=== PATIENT | female | born 1940 | race Caucasian/White ===

== ENCOUNTER → 2017-01-30 | Outpatient (CLI) | payer OTHER ==
[~2017-01-30] MED LIST: AMOX500T3 PO; ASPI-435 PO; CHOL2000 PO; CLB200 PO; HYDR-5688 PO; HYG/25 PO; LISI-461 PO; METO100T44 PO; POTA10CA28 PO; ROSU5TAB PO
[2017-01-30 12:17] LABS: BASO % 0.6 %; BASO ABS # 0.03 K/uL (0-0.2); COMPLETE YES; EOS % 4.4 %; HEMATOCRIT 42.4 % (37-47); IG% 0.2 %; LYMPH % 38.1 %; MEAN CELL VOLUME 89.3 fL (80-100); MEAN CORPUSCULAR HGB CONC 31.4 g/dl (32-36); MEAN PLATELET VOLUME 10.4 fL (7.4-10.4); MONO % 9.3 %; NEUT % 47.4 %; PLATELET COUNT 256 K/uL (130-400); RED BLOOD COUNT 4.75 M/uL (4.2-5.4); WHITE BLOOD COUNT 5.25 K/uL (4.8-10.8)
[2017-01-30 12:54] LABS: ALT/SGPT 14 U/L (12-78); BLOOD UREA NITROGEN 19 mg/dl (7-18); BUN/CREATININE RATIO 26.3 (10-20); CARBON DIOXIDE 28 mmol/L (21-32); CHLORIDE 104 mmol/L (98-107); CHOLESTEROL 184 mg/dl (0-200); CREATININE 0.73 mg/dl (0.60-1.20); GLUCOSE 84 mg/dl (70-99); POTASSIUM 3.8 mmol/L (3.5-5.1); SODIUM 139 mmol/L (136-145)
[2017-01-30 13:05] LABS: ALB/GLOB RATIO 1.1 (0.9-2); ALKALINE PHOSPHATASE 57 U/L (45-117); AST/SGOT 16 U/L (15-37); CHOLESTEROL/HDL RATIO 3.3; HDL CHOLESTEROL 55 mg/dl; LDL CHOLESTEROL CALCULATED 110 mg/dl; TRIGLYCERIDES 97 mg/dl (0-150); VERY LOW DENSITY LIPOPROT CALC 19 mg/dl
[2017-01-30 13:08] LABS: CALCIUM 8.9 mg/dl (8.5-10.1)
== END | disposition home or self-care (01) ==
LOC: C.LABPBG 08:22
PROVIDERS: ATTEND Internal Medicine
DX: E78.5 Hyperlipidemia, unspecified (principal); I25.10 Atherosclerotic heart disease of native coronary artery without angina pectoris; E04.1 Nontoxic single thyroid nodule

== ENCOUNTER → 2018-04-25 | Outpatient (CLI) | payer OTHER ==
[2018-04-25 13:12] LABS: ALBUMIN 3.4 gm/dl (3.4-5.0); ALKALINE PHOSPHATASE 57 U/L (45-117); ALT/SGPT 14 U/L (12-78); AST/SGOT 14 U/L (15-37); BLOOD UREA NITROGEN 18 mg/dl (7-18); CALCIUM 8.9 mg/dl (8.5-10.1); CARBON DIOXIDE 30 mmol/L (21-32); CHOLESTEROL 132 mg/dl (0-200); CREATININE 0.75 mg/dl (0.60-1.20); GLUCOSE 83 mg/dl (70-99); LDL CHOLESTEROL CALCULATED 52 mg/dl; POTASSIUM 3.8 mmol/L (3.5-5.1); SODIUM 136 mmol/L (136-145); TOTAL PROTEIN 6.8 gm/dl (6.4-8.2)
== END | disposition home or self-care (01) ==
LOC: C.LABPBG 10:16
PROVIDERS: ATTEND Internal Medicine
DX: I10 Essential (primary) hypertension (principal); E78.5 Hyperlipidemia, unspecified; I49.3 Ventricular premature depolarization; I25.10 Atherosclerotic heart disease of native coronary artery without angina pectoris; I25.5 Ischemic cardiomyopathy; R53.82 Chronic fatigue, unspecified; M85.80 Other specified disorders of bone density and structure, unspecified site

== ENCOUNTER 2023-12-11 10:10 | Observation (INO) ==
[2023-12-11 10:43] LABS: Basophils # (auto) 0.03 K/uL (0.00-0.20); Basophils % (auto) 0.4 %; Eosinophils # (auto) 0.03 K/uL (0.00-0.50); Eosinophils % (auto) 0.4 %; Hematocrit (blood only) 36.8 % (37.0-47.0); Hemoglobin 12.3 g/dl (12.0-16.0); Immature Granulocytes # (auto) 0.02 K/uL (0.01-0.20); Immature Granulocytes % (auto) 0.3 %; Lymphocytes # (auto) 1.82 K/uL (1.20-3.40); Lymphocytes % (auto) 25.5 %; Mean Corpuscular Hemoglobin 28.6 pg (25.0-34.0); Mean Corpuscular Hgb Conc 33.4 g/dL (32.0-36.0); Mean Corpuscular Volume 85.6 fL (80.0-100.0); Mean Platelet Volume 9.5 fL (9.4-12.4); Monocytes # (auto) 0.58 K/uL (0.11-0.59); Monocytes % (auto) 8.1 %; Neutrophils # (auto) 4.65 K/uL (1.40-6.50); Neutrophils % (auto) 65.3 %; Platelet Count 240 K/uL (130-400); RDW Coefficient of Variation 13.2 % (11.5-14.5); RDW Standard Deviation 41.5 fL (36.4-46.3); White Blood Count 7.13 K/ul (4.8-10.8)
--- NOTE | 2023-12-11 10:50 | XRay Report ---
SINGLE VIEW CHEST CLINICAL HISTORY: Dizziness FINDINGS: An AP, portable, upright chest radiograph is compared to study dated 11/13/2023. The examina tion is degraded by portable technique and apical lordotic positioning. The patient is status post mi dline sternotomy. The heart is enlarged noting atherosclerotic calcification of the thoracic aorta. T he pulmonary vasculature is noncongested. Chronic interstitial thickening is similar previous. Scarri ng/atelectasis is noted at the lung bases. The lungs and pleural spaces are otherwise clear. No pneum othorax is seen. The skeletal structures are osteopenic. The bony thorax is grossly intact. Arthritic change is seen in the shoulders. IMPRESSION: Cardiomegaly with no active disease in the chest. ACT 112: Negative or not required by law. Electronically signed by: Tony Garcia M.D. 12/11/2023 10:48 AM
[2023-12-11 10:58] LABS: Albumin Globulin Ratio 1.4 (0.9-2); BUN Creatinine Ratio 25.8 (10-20); Bilirubin,Total 0.8 mg/dl (0.2-1.0); Calcium 9.3 mg/dl (8.6-10.3); Creatinine Clr Calc Pharmacy 64.4 ml/min; Est GFR (African American) 94.7 ml/min; Est GFR (Non-African American) 81.7 ml/min; Globulin 2.8 gm/dl (2.5-4.0); Magnesium 1.7 mg/dl (1.7-2.4); Potassium 3.4 mmol/L (3.5-5.1); Total Protein 6.8 gm/dl (6.0-8.3)
[2023-12-11 11:04] LABS: Troponin I High Sensitivity 9.2 pg/ml (0-14)
[2023-12-11 11:13] LABS: Thyroid Stimulating Hormone 1.286 uIu/ml (0.300-4.500)
--- NOTE | 2023-12-11 11:23 | Emergency Department Note ---
Impression & Plan Shakiness, Generalized weakness, Acute hypokalemia, Acute hyponatremia ED Provider Note HISTORY OF PRESENT ILLNESS: Patient is an 83-year-old female presenting with shakiness. Patient reports that she has felt very shaky at home. Reports is her bilateral upper extremities that feel very unsteady. She apparently disclosed that she was dizzy to EMS but denies any dizziness in the emergency department. Reports that her shakiness started yesterday. Denies any fevers at home. She called her home health nurse who recommended she present to the emergency department, when patient reports she wanted to be seen at clinic. Denies any chest pain or shortness of breath. Denies any fever. Denies any nausea or vomiting. She has chronic neck pain secondary to arthritis, and she reports she took Tylenol earlier today which improved her symptoms. Denies any abdominal pain, nausea or vomiting. Denies recent falls or head injury. ROS: as above PHYSICAL EXAM: Constitutional: Patient appears in no acute distress. HENT: Head: Normocephalic and atraumatic. Eyes: EOMI, PERRL Mouth/Throat: Mucous membranes moist. Neck: Trachea midline. Neck supple. Cardiovascular: RRR, No murmurs, rubs or gallops. Intact distal pulses. Pulmonary/Chest: No respiratory distress. Breath sounds clear and equal bilaterally. No wheezes or rales. Abdominal: Abdomen soft, no tenderness, rebound or guarding. Musculoskeletal: No edema, tenderness or deformity noted. Skin: Warm and dry. No rash, erythema, pallor or cyanosis Psychiatric: Appropriate mood and affect for situation. Neurological: Alert and keenly responsive. CN II-XII grossly intact, moving all extremities equally and fully. MDM: - Vitals signs showed hypertension - History obtained via patient. History as above. - Chronic conditions affecting care: mitral regurgitation; HLD; IBS; HTN - Differential diagnoses include, but are not limited to: ACS; dysrhythmia; electrolyte abnormality; UTI; pneumonia - Order placed for continuous cardiac monitoring. At this time, monitor showed rate of 66 bpm with normal sinus rhythm, per my interpretation. - External medical records reviewed. Primary care visit note dated 11/25/2023 was reviewed. Patient was following up in clinic for her recent hospital discharge. Discharge summary dated 11/14/2023 was reviewed. Patient was admitted at that time for an upper respiratory infection. - EKG interpreted by myself showed normal sinus rhythm. Rate 65 bpm. QT 450. No acute ischemic changes. Noted to have a left bundle branch block. - Laboratory workup interpreted by myself showed normal WBC; hyponatremia (Na 126); hypokalemia (K 3.2); normal troponin; normal lipase; normal TSH - Repeat troponin WNL - CXR negative for pneumonia, per my interpretation - Discussed results with patient. On reassessment, she is feeling very shaky still. Patient does live home alone and ambulates with a walker. She has been able to ambulate with her walker to the bathroom in the ER, but is having significant tremors and shakiness in her bilateral upper extremities. Discussed results with the patient and her daughter. They feel more comfortable with plan for admission for further assessment. Patient symptoms may be secondary to her hyponatremia, she has not been hyponatremic on previous lab draws. - Discussion was had with gearcase assembler about patient's case and need for admission - Hospitalist consulted for admission - Patient admitted to [facility] service for further evaluation and management. ASSESSMENT AND PLAN: Diagnosis: shakiness; acute hypokalemia; hyponatremia; generalized weakness Plan: admit Past Med/Surg History Medical History Kyphosis Chronic fatigue syndrome Left atrial enlargement Mitral regurgitation Solitary thyroid nodule Chronic lower back pain Arteriosclerosis of coronary artery Hyperlipidemia Unspecified essential hypertension Irritable bowel syndrome Senile osteoporosis Arthritis of left knee Surgical History History of tubal ligation History of tonsillectomy History of rotator cuff surgery History of parathyroidectomy History of dilation and curettage History of colonoscopy History of bilateral hip replacements History of bilateral knee replacement Status post aorto-coronary artery bypass graft Family History Father Myocardial infarction Denies family history of Ovarian cancer Prostate cancer Breast cancer Colorectal cancer Social History Smoking Status: Never smoker Second Hand Exposure: No; Do You Dip or Chew Tobacco: No; Hx Alcohol Use: No Hx Substance Use: No Preferred Language: Turkish Communication Ability: Effective Visual Impairment: No Limitations Hearing Ability: Normal Licensed Psychologist Manager Required: No Beliefs That Will Affect Care: None marital status: / Current Living Situation: Alone current occupational status: retired Feels Safe at Home: Yes Childhood Exposure to Second-Hand Smoke: Yes Diet: regular Diet Comment: regular caffeine: Yes during the past year weight has: remained stable Dental Care, Regularly: Yes Physical Activity Frequency: Daily Physical Activity Frequency Comment: LIMITED Seatbelt Use: always Sunscreen Use: Yes Assistive Devices: Cane, Glasses and Walker Allergies Allergies Allergy/AdvReac Type Severity Reaction Status Date / Time latex Allergy Severe RASH Verified 11/25/23 10:15 adhesive Allergy Intermediate RASH Verified 11/25/23 10:15 atorvastatin Allergy Intermediate ITCHING Verified 11/25/23 10:15 cetirizine Allergy Intermediate RASH Verified 11/25/23 10:15 Iodinated Contrast Media Allergy Intermediate ITCHING Verified 11/25/23 10:15 oxycodone Allergy Intermediate RASH Verified 11/25/23 10:15 Home Meds Home Medications Medication Instructions Recorded Confirmed acetaminophen 500 mg tablet 500 mg PO HS PRN Pain 04/16/19 12/11/23 (Tylenol Extra Strength) aspirin 81 mg tablet,delayed 81 mg PO DAILY 04/16/19 12/11/23 release (Adult Low Dose Aspirin) cholecalciferol (vitamin D3) 75 3,000 units PO DAILY 04/16/19 12/11/23 mcg (3,000 unit) tablet chlorthalidone 25 mg tablet 12.5 mg PO DAILY 11/13/23 12/11/23 Previous Rx's Medication Instructions Recorded metoprolol succinate 50 mg 50 mg PO DAILY #90 tabs 06/24/23 tablet,extended release 24 hr potassium chloride 10 mEq 10 meq PO QAM #90 caps 10/10/23 capsule,extended release rosuvastatin 5 mg tablet (Crestor) 5 mg PO DAILY #90 tabs 10/10/23 lisinopril 30 mg tablet 30 mg PO DAILY #90 tabs 10/28/23 Results & Data (ED) Vital Signs Vital Signs - 24 hr 12/11/23 10:27 12/11/23 10:31 12/11/23 10:37 Temperature 36.5 C Temperature Source Oral Pulse Rate 64 66 Pulse Rate from SpO2 Sensor 66 Pulse Rhythm Regular Pulse Strength Normal Respiratory Rate 18 17 Respiratory Effort / Characteristics Non-Labored Respiratory Depth Normal Respiratory Pattern Regular Blood Pressure 162/47 H 162/47 H Blood Pressure Mean 85 85 Blood Pressure Position Sitting Pulse Oximetry 98 100 98 Oxygen Delivery Method Room Air Room Air Room Air Sepsis Recent Fever Within 48 Hours No Sepsis New/Unexplained Change in Mental Status No Sepsis Action Taken by Nursing No Action Required Laboratory Data 12/11/23 10:18 12/11/23 10:18 Lab Results 12/11/23 12/11/23 Range/Units 10:18 12:42 WBC 7.13 (4.8-10.8) K/ul RBC 4.30 (4.20-5.40) M/uL Hgb 12.3 (12.0-16.0) g/dl Hct 36.8 L (37.0-47.0) % MCV 85.6 (80.0-100.0) fL MCH 28.6 (25.0-34.0) pg MCHC 33.4 (32.0-36.0) g/dL RDW Std Deviation 41.5 (36.4-46.3) fL RDW Coeff of Jan 13.2 (11.5-14.5) % Plt Count 240 (130-400) K/uL MPV 9.5 (9.4-12.4) fL Immature Gran % (Auto) 0.3 % Neut % (Auto) 65.3 % Lymph % (Auto) 25.5 % [place] % (Auto) 8.1 % Eos % (Auto) 0.4 % Baso % (Auto) 0.4 % Neut # (Auto) 4.65 (1.40-6.50) K/uL Lymph # (Auto) 1.82 (1.20-3.40) K/uL [place] # (Auto) 0.58 (0.11-0.59) K/uL Eos # (Auto) 0.03 (0.00-0.50) K/uL Baso # (Auto) 0.03 (0.00-0.20) K/uL Immature Gran # (Auto) 0.02 (0.01-0.20) K/uL PT 11.4 (9.0-12.0) Seconds INR 1.0 (0.9-1.1) Sodium 126 L (136-145) mmol/L Potassium 3.4 L (3.5-5.1) mmol/L Chloride 92 L (98-107) mmol/L Carbon Dioxide 27 (21-32) mmol/L Anion Gap 7 (3-11) BUN 17 (6-23) mg/dl Creatinine 0.66 (0.6-1.2) mg/dl Est Cr Clr Drug Dosing 64.4 ml/min Est GFR ( Amer) 94.7 ml/min Est GFR (Non-Af Amer) 81.7 ml/min BUN/Creatinine Ratio 25.8 H (10-20) Glucose 98 (70-99(Fasting)) mg/dl Calcium 9.3 (8.6-10.3) mg/dl Magnesium 1.7 (1.7-2.4) mg/dl Total Bilirubin 0.8 (0.2-1.0) mg/dl AST 14 (13-39) U/L ALT 8 (7-52) U/L Alkaline Phosphatase 47 (34-104) U/L Troponin I High Sens 9.2 10.8 (0-14) pg/ml Total Protein 6.8 (6.0-8.3) gm/dl Albumin 4.0 (3.4-5.0) gm/dl Globulin 2.8 (2.5-4.0) gm/dl Albumin/Globulin Ratio 1.4 (0.9-2) Lipase 13 (11-82) U/L TSH 1.286 (0.300-4.500) uIu/ml Imaging Data Radiologist's Impression: Chest X-Ray 12/11/23 10:22 SINGLE VIEW CHEST CLINICAL HISTORY: Dizziness FINDINGS: An AP, portable, upright chest radiograph is compared to study dated 11/13/2023. The examination is degraded by portable technique and apical lordotic positioning. The patient is status post midline sternotomy. The heart is enlarged noting atherosclerotic calcification of the thoracic aorta. The pulmonary vasculature is noncongested. Chronic interstitial thickening is similar previous. Scarring/atelectasis is noted at the lung bases. The lungs and pleural spaces are otherwise clear. No pneumothorax is seen. The skeletal structures are osteopenic. The bony thorax is grossly intact. Arthritic change is seen in the shoulders. IMPRESSION: Cardiomegaly with no active disease in the chest. ACT 112: Negative or not required by law. Electronically signed by: Tony Garcia M.D. 12/11/2023 10:48 AM Discharge Plan Visit Data Chief Complaint: Illness Stated Complaint: NEAR SYNCOPE, DIZZINESS, NECK PAIN ED Provider: Danika Morse Discharge Problem: Shakiness, Generalized weakness, Acute hypokalemia, Acute hyponatremia Forms Stand Alone Forms: [facility] [employer] Prescriptions Prescriptions: No Action metoprolol succinate 50 mg tablet extended release 24 hr 50 mg PO DAILY Qty: 90 3RF potassium chloride 10 mEq capsule, extended release 10 meq PO QAM Qty: 90 1RF Rx Instructions: TAKE 1 CAPSULE BY MOUTH EVERY DAY rosuvastatin [Crestor] 5 mg tablet 5 mg PO DAILY Qty: 90 3RF lisinopril 30 mg tablet 30 mg PO DAILY Qty: 90 3RF acetaminophen [Tylenol Extra Strength] 500 mg tablet 500 mg PO HS PRN (Reason: Pain) cholecalciferol (vitamin D3) 3,000 unit tablet 3,000 units PO DAILY aspirin [Adult Low Dose Aspirin] 81 mg tablet,delayed release (DR/EC) 81 mg PO DAILY chlorthalidone 25 mg tablet 12.5 mg PO DAILY Rx Instructions: TAKE 1/2 TABLET BY MOUTH ONCE DAILY Referrals Referrals: Titus Ascencio CRNP [Primary Care Provider] -
[2023-12-11 11:35] LABS: Prothrombin Time 11.4 Seconds (9.0-12.0)
[2023-12-11 15:01] LABS: Appearance Urine Clear (Clear); Bilirubin Urine Negative (Negative); Blood Urine Negative (Negative); Color Urine Yellow; Glucose Urine UA Negative (Negative); Ketones Urine Trace (Negative); Leukocyte Esterase Urine Negative (Negative); Nitrite Urine Negative (Negative); Protein Urine Negative (Negative); Specific Gravity Urine 1.009 (1.000-1.030); Urobilinogen Urine Negative (Negative); pH Urine 6.5 (4.5-7.5)
--- NOTE | 2023-12-11 16:15 | Electrocardiogram Report ---
Test Reason : Blood Pressure : / mmHG Vent. Rate : 065 BPM Atrial Rate : 065 BPM P-R Int : 192 ms QRS Dur : 158 ms QT Int : 450 ms P-R-T Axes : 022 -19 121 degrees QTc Int : 468 ms Normal sinus rhythm Left bundle branch block Abnormal ECG When compared with ECG of 13-NOV-2023 02:26, Vent. rate has decreased BY 33 BPM Confirmed by Mynor Lombardi ([id number]) on 12/11/2023 4:15:17 PM Referred By: Titus Ascencio Confirmed By:Mynor Lombardi
--- NOTE | 2023-12-11 18:11 | History & Physical Report ---
Date of Service December 11, 2023 Assessment & Plan (1) Shakiness: Plan: Acute onset of bilateral upper extremity shaking x 2 episodes that began on 12/09 Patient reports that she felt like she was going to pass out during her second episode, but did not No recent falls, injuries, or trauma to the head or neck TSH WNL Clinically, suspect tremors in the setting of acute hyponatremia and poor oral intake; see #2 If symptoms due not improve with electrolyte correction, consider additional imaging and/or causes; DDx: benign essential tremor, drug-induced tremor, orthostatics, PD, etc. Fall precautions PT/OT consulted A.m. CBC, BMP (2) Acute hyponatremia: Plan: Na 126 on arrival May be the cause of her recent onset of new tremors Urine osm, serum osm, urine sodium ordered; do not correlate with SIADH NSS 1000mL IV bolus, then will start Plasma-Lyte at 100mL/hr x 2 Trend BMP q4h x 2; continue to monitor and avoid rapid overcorrection (3) Acute hypokalemia: Plan: Mild; K 3.4 on arrival Patient normally takes potassium supplementation 10mEq daily Hold chlorthalidone K rider 20 mill equivalents given in the ED Continue potassium chloride p.o. 20mEq TID x 5 doses, and converted back to regular potassium supplementation Plan Disposition: Obs - Admit to [facility] telemetry Full code AHA diet VTE PPx: Lovenox 40mg SQ q24h History of Present Illness Chief Complaint: New onset shakiness Primary Care Provider: SHERINE Dooley Ayah is an 83-year-old female with PMH of HLD, osteoporosis, LBBB, second-degree AV block, HTN, and kyphosis. She presented via EMS for bilateral upper extremity shakiness that started yesterday on 12/09. The arm shakiness came on yesterday and passed; patient is unsure how long it lasted for. However, it returned a second time the following morning and she felt like she was going to pass out. Patient tried eating cereal because she thought maybe she was hungry, but this did not help. She is unsure what triggered these episodes of shaking. Patient ambulates with a walker/cane at baseline. She denies any recent falls, or injuries/trauma to the head or neck. She does have chronic neck pain due to arthritis, for which she takes acetaminophen as needed. No recent change in medications. Patient reports that she only took her lisinopril and metoprolol this morning. She does have a history of 3 falls with the last being in October 2022. Patient lives alone. She denies any recent changes in diet. No smoking, tobacco use, or alcohol use. Patient is hypertensive at 147/80 at time admission; vitals otherwise stable. ROS: Patient endorses shakiness, GOMEZ, back and neck pain (which patient attributes to arthritis), Patient denies fever, chills, nightsweats, dizziness/lightheadedness with movements, CP, SOB, abdominal pain, N/V/D, urinary s/s, or N/T/pain in legs. Allergies Allergy/AdvReac Type Severity Reaction Status Date / Time latex Allergy Severe RASH Verified 11/25/23 10:15 adhesive Allergy Intermediate RASH Verified 11/25/23 10:15 atorvastatin Allergy Intermediate ITCHING Verified 11/25/23 10:15 cetirizine Allergy Intermediate RASH Verified 11/25/23 10:15 Iodinated Contrast Media Allergy Intermediate ITCHING Verified 11/25/23 10:15 oxycodone Allergy Intermediate RASH Verified 11/25/23 10:15 Home Medications Medication Instructions Recorded Confirmed Type acetaminophen 500 mg tablet 500 mg PO HS PRN Pain 04/16/19 12/11/23 History (Tylenol Extra Strength) aspirin 81 mg tablet,delayed 81 mg PO DAILY 04/16/19 12/11/23 History release (Adult Low Dose Aspirin) cholecalciferol (vitamin D3) 75 3,000 units PO DAILY 04/16/19 12/11/23 History mcg (3,000 unit) tablet metoprolol succinate 50 mg 50 mg PO DAILY #90 tabs 06/24/23 12/11/23 Rx tablet,extended release 24 hr potassium chloride 10 mEq 10 meq PO QAM #90 caps 10/10/23 12/11/23 Rx capsule,extended release rosuvastatin 5 mg tablet (Crestor) 5 mg PO DAILY #90 tabs 10/10/23 12/11/23 Rx lisinopril 30 mg tablet 30 mg PO DAILY #90 tabs 10/28/23 12/11/23 Rx chlorthalidone 25 mg tablet 12.5 mg PO DAILY 11/13/23 12/11/23 History Past Med/Surg History Medical History Kyphosis Chronic fatigue syndrome Left atrial enlargement Mitral regurgitation Solitary thyroid nodule Chronic lower back pain Arteriosclerosis of coronary artery Hyperlipidemia Unspecified essential hypertension Irritable bowel syndrome Senile osteoporosis Arthritis of left knee Surgical History History of tubal ligation History of tonsillectomy History of rotator cuff surgery History of parathyroidectomy History of dilation and curettage History of colonoscopy History of bilateral hip replacements History of bilateral knee replacement Status post aorto-coronary artery bypass graft Family History Father Myocardial infarction Denies family history of Ovarian cancer Prostate cancer Breast cancer Colorectal cancer Social History Smoking Status: Never smoker Second Hand Exposure: No; Do You Dip or Chew Tobacco: No; Tobacco Cessation Education Requested by Patient: No Hx Alcohol Use: No Hx Substance Use: No Preferred Language: Swedish Communication Ability: Effective Visual Impairment: No Limitations Hearing Ability: Normal Supervisor Packing Room Required: No Beliefs That Will Affect Care: None marital status: / Current Living Situation: Alone current occupational status: retired Other Information That Helps Us Care for You: No Feels Safe at Home: Yes Safety Concerns: Feels Safe At This Time Childhood Exposure to Second-Hand Smoke: Yes Diet: regular Diet Comment: regular caffeine: Yes during the past year weight has: remained stable Dental Care, Regularly: Yes Physical Activity Frequency: Daily Physical Activity Frequency Comment: LIMITED Seatbelt Use: always Sunscreen Use: Yes Assistive Devices: Cane and Walker Review of Systems Review of Systems: See HPI above Physical Exam Physical Exam: General: no acute distress; patient holds up her head at baseline; non-toxic appearing; frail; cooperative HEENT: normocephalic, atraumatic; no scleral icterus; PERRLA; moist mucus membrane; vision and hearing intact Neck: supple; no lymphadenopathy; trachea midline; shoulder pain with shrugging shoulders against resistance Skin: warm, dry without signs of tenting; no cyanosis; no rashes, bruising, lesions, or erythema noted CV: chest wall NTP; RRR; S1/S2 normal; no murmurs/rubs/gallops; pulses intact and symmetric at radial, DP, and PT Lungs: no acute respiratory distress; symmetrical chest wall expansion; clear breath sounds across all lung lafleur w/o adventitious sounds; no wheezing ABD: Soft, NTP; BS present; no rebound/guarding; no distention Back: Kyphosis MSK: Minimal shakiness in the upper extremities / hands bilaterally; ulnar deviation of the hands bilaterally; nonpitting edema of the LEs B/L, nonerythematous, TTP Neuro: A&Ox3; normal mood and affect; fluent speech; no focal deficits; sensation intact in the LEs b/l Results & Data Results & Data Vital Signs (Past 12 Hours) Vital Signs Temp Pulse Pulse Resp BP BP Pulse Ox 12/11/23 16:42 70 20 147/80 H 96 12/11/23 11:00 66 21 150/62 H 99 12/11/23 10:37 98 12/11/23 10:31 66 17 162/47 H 100 12/11/23 10:27 36.5 C 64 18 162/47 H 98 O2 Del Method 12/11/23 16:42 Room Air 12/11/23 11:00 12/11/23 10:37 Room Air 12/11/23 10:31 Room Air 12/11/23 10:27 Room Air Laboratory Results Abnormal lab results 12/11/23 12/11/23 Range/Units 10:18 14:16 Hct 36.8 L (37.0-47.0) % Sodium 126 L (136-145) mmol/L Potassium 3.4 L (3.5-5.1) mmol/L Chloride 92 L (98-107) mmol/L BUN/Creatinine Ratio 25.8 H (10-20) Urine Ketones Trace H (Negative) Diagnostic Findings Chest X-Ray 12/11/23 10:22 SINGLE VIEW CHEST CLINICAL HISTORY: Dizziness FINDINGS: An AP, portable, upright chest radiograph is compared to study dated 11/13/2023. The examination is degraded by portable technique and apical lordotic positioning. The patient is status post midline sternotomy. The heart is enlarged noting atherosclerotic calcification of the thoracic aorta. The pulmonary vasculature is noncongested. Chronic interstitial thickening is similar previous. Scarring/atelectasis is noted at the lung bases. The lungs and pleural spaces are otherwise clear. No pneumothorax is seen. The skeletal structures are osteopenic. The bony thorax is grossly intact. Arthritic change i s seen in the shoulders. IMPRESSION: Cardiomegaly with no active disease in the chest. ACT 112: Negative or not required by law. Electronically signed by: Tony Garcia M.D. 12/11/2023 10:48 AM Code Status & VTE Plan Code Status Full code VTE Prophylaxis Plan VTE Prophylaxis will be ordered: Yes Supervising Physician Co-Signing Physician Notes Patient seen and examined, chart reviewed, case discussed with Yuan Kamara and I agree with the assessment and plan as above except as otherwise noted Labs and images reviewed Vicky is an 83yo F who presents with shakiness, weakness, and presycnope 1 day ago. Did not improve with food. No syncope/falls. Appears volume contracted, EKG with LBBB redemonstrated no acute ischemic changes. No medication changes. +Mild hyponatremia 126. Suspect poor intake with solute depletion. Urine sodium, serum osm, urine osm are pending to r/o SIADH. If no SIADH --> +1.5 NSS bolus and plasmalyte subsequently for maintenance. BMP q4h. K 3.4 --> +20meq IV, and 20meq TID. K likely low 2/2 chlorthalidone and suspected poor PO intake.If sodium downtrends/worsening sx --> 100cc 3% nss. Patient reports she has chronic arthritis discomfort in her neck which has not changed. Recently took Tylenol which is helping a little bit. No other concerns at bedside assessment. Agree w/ assessment and mngmnt above. PG Care Time/CCT Total # of Minutes Spent Total Time Spent with Patient: Total time spent is greater than 50% in coordination of care (as documented) at patient's floor/unit and/or counseling patient: [place] [address] INT INP/OBS CARE 2/55MIN Patient Type Established History Comprehensive Exam Comprehensive Medical Decision Making Moderate Complexity Diagnoses Shakiness R25.1 Acute hyponatremia E87.1 Acute hypokalemia E87.6
[2023-12-11] MEDS: ACETAMINOPHEN 325 MG TAB PO STA (18:40)
[2023-12-11] MEDS: MAGNESIUM SULFATE / D5W 1 GM/100 ML BAG IV ONE (20:55)
[2023-12-11] MEDS: POTASSIUM CHLORIDE / WTR 10 MEQ/100 ML PLCT IV SCH (20:55)
[2023-12-11] MEDS: SODIUM CHLORIDE 0.9% 1,000 ML IV ONE (20:56)
[2023-12-11] MEDS: POTASSIUM CHLORIDE CRTAB 20 MEQ TABCR PO SCH (22:11)
[2023-12-11] MEDS: PLASMA-LYTE A 1,000 ML IV SCH (23:10)
[2023-12-11] MEDS: ENOXAPARIN INJ 40 MG/0.4 ML SYR SQ SCH (23:15)
[2023-12-11 23:24] LABS: BUN Creatinine Ratio 25.9 (10-20); Creatinine Clr Calc Pharmacy 73.3 ml/min; Est GFR (African American) 98.8 ml/min; Est GFR (Non-African American) 85.2 ml/min; Potassium 3.2 mmol/L (3.5-5.1)
[2023-12-12] MEDS: MAGNESIUM SULFATE / D5W 1 GM/100 ML BAG IV SCH (00:05)
[2023-12-12] MEDS: POTASSIUM CHLORIDE / WTR 10 MEQ/100 ML PLCT IV SCH (00:05)
[2023-12-12] MEDS: DICLOFENAC SOD 1% GEL 100 GM TUBE EXT PRN (01:02)
[2023-12-12 04:29] LABS: Basophils # (auto) 0.04 K/uL (0.00-0.20); Basophils % (auto) 0.6 %; Eosinophils # (auto) 0.19 K/uL (0.00-0.50); Hematocrit (blood only) 32.1 % (37.0-47.0); Hemoglobin 10.7 g/dl (12.0-16.0); Immature Granulocytes # (auto) 0.01 K/uL (0.01-0.20); Immature Granulocytes % (auto) 0.2 %; Lymphocytes # (auto) 2.46 K/uL (1.20-3.40); Lymphocytes % (auto) 39.4 %; Mean Corpuscular Hemoglobin 28.2 pg (25.0-34.0); Mean Corpuscular Hgb Conc 33.3 g/dL (32.0-36.0); Mean Corpuscular Volume 84.5 fL (80.0-100.0); Mean Platelet Volume 9.4 fL (9.4-12.4); Monocytes # (auto) 0.76 K/uL (0.11-0.59); Monocytes % (auto) 12.2 %; Neutrophils # (auto) 2.79 K/uL (1.40-6.50); Neutrophils % (auto) 44.6 %; Platelet Count 214 K/uL (130-400); RDW Coefficient of Variation 13.2 % (11.5-14.5); RDW Standard Deviation 40.5 fL (36.4-46.3); White Blood Count 6.25 K/ul (4.8-10.8)
[2023-12-12] MEDS: ACETAMINOPHEN 325 MG TAB PO PRN (04:29)
[2023-12-12 04:30] LABS: BUN Creatinine Ratio 21.3 (10-20); Calcium 8.2 mg/dl (8.6-10.3); Creatinine Clr Calc Pharmacy 69.7 ml/min; Est GFR (African American) 97.2 ml/min; Est GFR (Non-African American) 83.8 ml/min; Magnesium 2.6 mg/dl (1.7-2.4); Potassium 3.6 mmol/L (3.5-5.1)
[2023-12-12] MEDS: ASPIRIN 81 MG ECTAB PO SCH (09:04)
[2023-12-12] MEDS: ROSUVASTATIN CALCIUM 5 MG TAB PO SCH (09:04)
[2023-12-12] MEDS: METOPROLOL SUCC 50MG EXT REL TAB PO SCH (09:04)
[2023-12-12] MEDS: lisinopril 10 MG TAB PO SCH (09:05)
[2023-12-12 11:03] VITALS: RESP 19
--- NOTE | 2023-12-12 14:47 | Hospitalist Progress Note ---
Date of Service December 12, 2023 Assessment & Plan (1) Shakiness: Plan: - Acute onset of shakiness that began on 12/09 where the patient felt like she was going to pass out. - Initial differentials included electrolyte imbalances due to dehydration, medications, or inadequate intake, weakness due to recent hospital stay, infection, such as a urinary tract infection, possible neurological conditions such as Parkinsons or essential tremor but those would last more than two days, hypothyroidism. - On labs, she had the low sodium and potassium, urine negative for UTI, low urine osmolality at 318, and the TSH was normal. - Therefore, clinically, there would be suspicion for shakiness and tremors due to hyponatremia; could also be weakness due to recent hospital stay. - Patient was given NSS 1000 mL IV bolus then started on Plasma-Lyte at 100 mL/hr * 2. - Patient was not feeling shakey and weak after receiving the Plasma-Lyte. - In terms of plan, I think it would be good to have PT evaluate her. They saw her on for an initial evaluation, so I think it could be helpful to have them see if she has changed. - F/U with PCP after discharge and monitor for weakness/tremors. - Continue eating and drinking water as normal. (2) Acute hyponatremia: Plan: - Low sodium, low urine osmolality, low serum osmolality - She was given NSS 1000 mL IV bolus and then started on Plasma-Lyte at 100 mL/hr * 2. - Patient is feeling better today on 12/11. - Order another BMP to see if her sodium has continued to rise. (3) Acute hypokalemia: Plan: - Patient presented on 12/10 with mild hypokalemia; patient also was hypokalemic on 11/13 during inpatient stay for respiratory distress. - Potassium may be low because of chlorthalidone. - Patient normally takes potassium supplementation 10 mEq daily, but did not take on 12/10. - Yesterday, chlorthalidone was held. - K ride 20 raisa equivalents was given in the ED. They continued on potassium chloride P.O. 20 mEq TID * 5 doses. - Patient is no longer hypokalemic on 12/11. - Patient should continue back with her regular potassium supplementation. - Patient should discontinue chlorthalidone due to electrolyte abnormalities. (4) Arthritis: Plan: - Continue Acetaminophen 650 mg PRN for pain. Plan Disposition: Discharge 12/11 Full code [facility] diet Admission and Anticipated Discharge Date Admission Date: December 11, 2023 Subjective 83 YO F with a PMH of mitral regurgitation, HLD, IBS, and HTN presented to [facility] ER on 12/10 for shakiness and generalized weakness. This morning, I saw her at bedside. She reported that the weakness and shakiness specifically in her bilateral upper extremities started suddenly on 12/09. She said by 12/10, it was progressively worse. She felt like she was going to pass out. She said she has never felt this way before. She called one of the nursing students from her previous stay 11/13- to see if she could come in and be seen in their clinic, but they told her to go to the ER. She tried eating some cereal to see if that would help but that did not help with the shakiness, so she called her son to bring her into the ED. In the ED, her EKG showed normal sinus rhythm, rate 65 bpm, L bundle branch block, which is chronic. Chest x-ray was negative for pneumonia. Laboratory workup showed hyponatremia at 126 and hypokalemia at 3.2. On her previous admission on 11/13 for respiratory distress and hypoxia, she presented with mild hyponatremia at 132 and hypokalemia at 3.4. In the ER on 12/10, She was given NSS 1000 mL IV bolus then started on Plasma-Lyte at 100 mL/hr * 2. For mild hypokalemia, K ride 20 mill equivalents were given. She was continued on potassium chloride PO 20 mEq TID * 5 doses. The patient reported that she does not have any recent falls or head injuries. She has fallen 3 times before with the most recent being in October of 2022 but never because she has felt dizzy/weak. She does live alone and uses a walker/cane but is able to take care of herself well. She cooks routinely and her daughter/ cook and also bring over food regularly. She has not changed her diet at all. She said she could not estimate it for me but drinks water throughout the day. She takes all of her medications as normal in the morning after breakfast; none of them have changed. No family history of tremors, neurological or MSK conditions. No smoking, drinking, drugs. Today, she said she is feeling better with regards to the shakiness. When eating breakfast, she was shaking a very small amount, but she reported that this was because yesterday was a long day; she said it was not as bad as 12/10. This morning, she said she could not fully comment on the weakness because she had not got out of bed but believed she was doing better. She said she is having a good amount of pain with her arthritis due to the bed. When seen at roughly 3:00 pm, patient reported she was doing well and not feeling weak/shakey. Review of Systems Review of Systems: Constitutional Negative for fever, chills, sweats, dizziness, unexpected sleep disturbances. Respiratory Negative for SOB and coughing. CV Negative for palpitations and edema in lower extremities. GI Negative for nausea, vomiting, diarrhea, constipation, abdominal pain, and changes in bowel habits. Negative for dysuria, hematuria, increased frequency/urgency, and incontinence. MSK Positive for pain in her neck. Neuro Negative for confusion. Positive for weakness and mild shakiness. Positive for numbness in left palmar surface of hand. Physical Exam 2 Physical Exam: General: mild distress due to arthritis; patient holds up her head at baseline; non-toxic appearing; frail; cooperative HEENT: normocephalic, atraumatic; no scleral icterus; PERRLA; moist mucus membrane; vision and hearing intact Neck: supple; no lymphadenopathy; trachea midline; shoulder pain with shrugging shoulders against resistance Skin: warm, dry without signs of tenting; no cyanosis; no rashes, bruising, lesions, or erythema noted CV: RRR; S1/S2 normal; no murmurs/rubs/gallops; pulses intact and symmetric at radial, DP, and PT, appears euvolemic Lungs: no acute respiratory distress; symmetrical chest wall expansion; clear breath sounds across all lung lafleur w/o adventitious sounds; no wheezing ABD: Soft, NTP; BS present; no rebound/guarding; no distention MSK: Mild tremors of hands. Neuro: A&Ox3; normal mood and affect; fluent speech; no focal deficits; sensation intact in the LEs b/l Results & Data Results & Data Vital Signs (Past 12 Hours) Vital Signs Temp Pulse Pulse Resp BP Pulse Ox O2 Del Method 12/12/23 11:02 36.3 C L 64 19 128/56 L 97 Room Air 12/12/23 07:47 36.4 C L 59 L 18 120/58 L 98 Room Air 12/12/23 07:39 74 12/12/23 04:07 36.3 C L 64 18 117/57 L 99 Room Air
[2023-12-12 15:41] VITALS: BP 150/66; PULSE 65; TEMP 97.5; O2SAT 95
--- NOTE | 2023-12-12 16:38 | Discharge Summary ---
Date of Service December 12, 2023 Admission HPI Per Admitting Provider Ayah is an 83-year-old female with PMH of HLD, osteoporosis, LBBB, second-degree AV block, HTN, and kyphosis. She presented via EMS for bilateral upper extremity shakiness that started yesterday on 12/09. The arm shakiness came on yesterday and passed; patient is unsure how long it lasted for. However, it returned a second time the following morning and she felt like she was going to pass out. Patient tried eating cereal because she thought maybe she was hungry, but this did not help. She is unsure what triggered these episodes of shaking. Patient ambulates with a walker/cane at baseline. She denies any recent falls, or injuries/trauma to the head or neck. She does have chronic neck pain due to arthritis, for which she takes acetaminophen as needed. No recent change in medications. Patient reports that she only took her lisinopril and metoprolol this morning. She does have a history of 3 falls with the last being in October 2022. Patient lives alone. She denies any recent changes in diet. No smoking, tobacco use, or alcohol use. Patient is hypertensive at 147/80 at time admission; vitals otherwise stable. ROS: Patient endorses shakiness, GOMEZ, back and neck pain (which patient attributes to arthritis), Patient denies fever, chills, nightsweats, dizziness/lightheadedness with movements, CP, SOB, abdominal pain, N/V/D, urinary s/s, or N/T/pain in legs. Admission Exam Per Admitting Provider General: no acute distress; patient holds up her head at baseline; non-toxic appearing; frail; cooperative HEENT: normocephalic, atraumatic; no scleral icterus; PERRLA; moist mucus membrane; vision and hearing intact Neck: supple; no lymphadenopathy; trachea midline; shoulder pain with shrugging shoulders against resistance Skin: warm, dry without signs of tenting; no cyanosis; no rashes, bruising, lesions, or erythema noted CV: chest wall NTP; RRR; S1/S2 normal; no murmurs/rubs/gallops; pulses intact and symmetric at radial, DP, and PT Lungs: no acute respiratory distress; symmetrical chest wall expansion; clear breath sounds across all lung lafleur w/o adventitious sounds; no wheezing ABD: Soft, NTP; BS present; no rebound/guarding; no distention Back: Kyphosis MSK: Minimal shakiness in the upper extremities / hands bilaterally; ulnar deviation of the hands bilaterally; nonpitting edema of the LEs B/L, non erythematous, TTP Neuro: A&Ox3; normal mood and affect; fluent speech; no focal deficits; sensation intact in the LEs b/l Principal Diagnosis hyponatremia/hypokalemia Discharge Exam Constitutional WD/WN, vitals as above Eyes + anicteric sclerae; no conjunctival abnormality ENMT Ears: no external ear abnormality Nose: no external nose abnormality Moist mucous membranes Respiratory normal respiratory effort; no respiratory distress and does not use accessory muscles Cardiovascular Rate/Rhythm: regular rate and regular rhythm Extremities: no edema Skin no rashes, warm and dry Neurologic no focal motor deficits Psychiatric A+Ox3, euthymic affect Discharge Data Allergies Allergy/AdvReac Type Severity Reaction Status Date / Time latex Allergy Severe RASH Verified 11/25/23 10:15 adhesive Allergy Intermediate RASH Verified 11/25/23 10:15 atorvastatin Allergy Intermediate ITCHING Verified 11/25/23 10:15 cetirizine Allergy Intermediate RASH Verified 11/25/23 10:15 Iodinated Contrast Media Allergy Intermediate ITCHING Verified 11/25/23 10:15 oxycodone Allergy Intermediate RASH Verified 11/25/23 10:15 Consultations 12/11/23 15:00 ED Decision to Admit Stat Ordered Studies Chest X-Ray 12/11/23 10:22 SINGLE VIEW CHEST CLINICAL HISTORY: Dizziness FINDINGS: An AP, portable, upright chest radiograph is compared to study dated 11/13/2023. The examination is degraded by portable technique and apical lordotic positioning. The patient is status post midline sternotomy. The heart is enlarged noting atherosclerotic calcification of the thoracic aorta. The pulmonary vasculature is noncongested. Chronic interstitial thickening is similar previous. Scarring/atelectasis is noted at the lung bases. The lungs and pleural spaces are otherwise clear. No pneumothorax is seen. The skeletal structures are osteopenic. The bony thorax is grossly intact. Arthritic change is seen in the shoulders. IMPRESSION: Cardiomegaly with no active disease in the chest. ACT 112: Negative or not required by law. Electronically signed by: Tony Garcia M.D. 12/11/2023 10:48 AM Hospital Course (1) Acute hyponatremia: (2) Acute hypokalemia: (3) Generalized weakness: (4) Shakiness: Plan Shakiness | Hyponatremia, Hypokalemia Acute onset of shakiness that began on 12/09 where the patient felt like she was going to pass out. Initial differentials included electrolyte imbalances due to dehydration, medications, or inadequate intake. Was found to have low sodium and potassium on admission, urine negative for UTI, low urine osmolality at 318. Suspect shakiness and tremors due to hyponatremia. On admission, symptoms improved after IV fluids and repletion of potassium. Chlorthalidone was held on arrival. PT/OT evaluated patient. Due to improvement of symptoms and improvement of potassium and sodium levels, patient was discharged home with ongoing home health services. * Chlorthalidone was stopped. Discussed with patient at length regarding why venous stasis lower extremity swelling will not improve with diuresis. Provided written discharge instructions regarding methods to help improve increased LE swelling from venous stasis including exercise, compression stockings, elevating legs. * Recommend repeating BMP within a week to monitor potassium and sodium levels Total Time Total Time Spent Total Time Spent (In Minutes): .<30 Discharge Plan Discharge Items Patient Disposition: Home - Home Health Services Reason For Visit: SHAKING, HYPONATREMIA Discharge Diagnosis: Hyponatremia Activity: Per Instructions section Non-emergency contact: Primary Care Provider Call non-emergency contact if: you have any medication questions and your symptoms worsen Follow-up/Referrals: Titus Ascencio CRNP [Primary Care Provider] - (Please schedule hospital discharge follow up appointment within one week of discharge) Diet: Heart Healthy Addtl Attending Provider Instructions: You were admitted to the hospital for shakiness and upon arrival to the hospital you were found to have low levels of sodium and potassium. Fortunately your symptoms of shakiness/weakness improved after repletion of your sodium and potassium with IV fluids and potassium supplementation. As we discussed, there are likely several factors causing your low sodium/low potassium that lead you to feel shaky/weak. Inadequate intake of fluids/food may have contributed to this as well, but we feel that your "water pill" (chlorthalidone) is a big factor for your sodium and potassium level imbalances. We have now discontinued your water pill, stop taking the chlorthalidone. Regarding lower leg swelling- this is largely caused by venous stasis (in the simplest terms, it can be thought of as stretched out blood vessels that don't do a great job of moving the blood in your legs back up to your heart) which can be improved by using your legs with exercise/movement to help the muscles in y our legs assist with "pumping" the blood back up towards your heart, wearing compression stockings, as well as elevating your legs when seated. "Water pills" like the chlorthalidone actually do not work very well to reduce this leg swelling related to venous stasis and can cause more issues like decreasing your electrolytes which ultimately caused you to end up at the hospital for this admission. Considering your improvement in symptoms, we feel it is safe for you to return home with ongoing home health services. Our case management team has sent a new referral to your home health company so they can continue provide services upon your return home. A discharge summary will be sent to your primary care physician to ensure continuity of care. Follow-up appointments Make a follow-up appointment with your PCP within the next week. It is very important that you follow up with them shortly after discharge from the hospital. Medications: Your medication list has been reviewed and reconciled upon discharge to ensure accuracy and continuity of care. An updated list of all your medications is included with your hospital discharge paperwork. Please review this list closely, and make note of any changes. As we discussed, stop taking the chlorthalidone. CALL 911 OR GO TO THE EMERGENCY DEPARTMENT if you experience any of the following: Sudden, severe abdominal pain or nausea/vomiting Severe chest pain, or chest pain that radiates (moves) to your jaw or arm Sudden, severe shortness of breath or difficulty breathing Thank you for allowing us to participate in your care. Pending Studies at Discharge: No Stand-Alone Forms: My [facility], Smoking Cessation Medications and DC Order Prescriptions: Continued metoprolol succinate 50 mg tablet extended release 24 hr 50 mg PO DAILY Qty: 90 3RF potassium chloride 10 mEq capsule, extended release 10 meq PO QAM Qty: 90 1RF Rx Instructions: TAKE 1 CAPSULE BY MOUTH EVERY DAY rosuvastatin [Crestor] 5 mg tablet 5 mg PO DAILY Qty: 90 3RF lisinopril 30 mg tablet 30 mg PO DAILY Qty: 90 3RF acetaminophen [Tylenol Extra Strength] 500 mg tablet 500 mg PO HS PRN (Reason: Pain) cholecalciferol (vitamin D3) 3,000 unit tablet 3,000 units PO DAILY aspirin [Adult Low Dose Aspirin] 81 mg tablet,delayed release (DR/EC) 81 mg PO DAILY Discontinued chlorthalidone 25 mg tablet 12.5 mg PO DAILY Rx Instructions: TAKE 1/2 TABLET BY MOUTH ONCE DAILY Admission Data Admit Date/Time: 12/11/23 18:50 Attending Provider: Marcial Goode Admit Provider: Tk Ureña Primary Care Provider: Titus Ascencio Other Providers: Tk Ureña; Tucker [facility] Supervising Physician Co-Signing Physician Notes I personally examined the patient and verified all merino points of history and exam, discussed case, and agree with decision making with Dr Hernandez feeling better walking around well doesn't feel weak feels like she would be OK at home in current state. discussed leg swelling - no SOB, sounds entirely c/w venous stasis vitals noted nad heent nc at mmm breathing unlabored no accessory muscles good effort skin no rashes no pallor or icterus neuro no focal deficits weakness/shakiness - likely low volume, low Na - which in turn seem to fit the most with chlorthalidone. stop chlorthalidone. safe for home. PCP f/u, labs as outpt venous stasis - extensive discussion on physiology followed by management. discussed how most of the time trying to diurese venous stasis leads to more problems with dehydration/etc than benefit. discussed movement > compression > elevation as better and safer means to manage safe/stable for home, otherwise as above
--- NOTE | 2023-12-12 16:53 | Billing Data ---
Date of Service December 12, 2023 Coding Level of Care Code 49056 IN/OBS DISCH 30 MIN/LESS
== END 2023-12-12 18:35 | disposition home health service (06) ==
LOC: ED 10:10 → EDINP 10:10 → SUATTDRO 18:50 → 4W 22:12
DX: M81.0 Age-related osteoporosis without current pathological fracture; E87.6 Hypokalemia; E78.5 Hyperlipidemia, unspecified; E87.1 Hypo-osmolality and hyponatremia; Z91.041 Radiographic dye allergy status; Z88.6 Allergy status to analgesic agent; Z91.040 Latex allergy status; Z88.8 Allergy status to other drugs, medicaments and biological substances; M40.209 Unspecified kyphosis, site unspecified; Z79.82 Long term (current) use of aspirin; I44.1 Atrioventricular block, second degree; I44.7 Left bundle-branch block, unspecified; Z79.899 Other long term (current) drug therapy; K58.9 Irritable bowel syndrome, unspecified; Z96.643 Presence of artificial hip joint, bilateral; Z96.653 Presence of artificial knee joint, bilateral; M13.89 Other specified arthritis, multiple sites; Z91.09 Other allergy status, other than to drugs and biological substances; I10 Essential (primary) hypertension